=== PATIENT | female | born 1990 | race Caucasian/White ===

== ENCOUNTER 2023-09-30 13:43 | Outpatient (AMB) | payer OTHER, SELFPAY ==
--- NOTE | 2023-09-30 13:51 | A.OFFVIS_ITS ---
Vital Signs 09/30/23 13:53 Height 6 ft Weight 284 lb 13.396 oz BMI 38.6 BP 130/70 Blood Pressure Location Lt brachial Position Sitting Pulse 101 H Intake Visit Reasons: Gastroesophageal reflux disease (GERD) Intake Note: Patient in office today for evaluation and management of GERD. CC: Patient c/o acid reflux for about 3 years. Taking Omeprazole with good management of symptoms. [facility] Administrator Required: No Accompanied by: Self / Same As Patient Allergies rosin Allergy (Severe, Verified 09/30/23 14:00) Rash sulfamethoxazole [From Bactrim] Allergy (Severe, Verified 09/30/23 14:00) Rash trimethoprim [From Bactrim] Allergy (Severe, Verified 09/30/23 14:00) Rash Medication List - Last Reconciled 09/30/23 by Claudia West [facility]- buspirone 15 mg PO BID cariprazine (Vraylar) 3 mg PO DAILY ezetimibe (Zetia) 10 mg PO DAILY fexofenadine (Omaira Allergy) 180 mg PO DAILY fluticasone propionate 50 mcg/actuation (Flonase Allergy Relief) 1 spray intranasal DAILY gabapentin 200 mg PO BID hydroxyzine HCl 10 mg PO TID PRN lamotrigine (Lamictal) 200 mg PO DAILY omeprazole 20 mg PO DAILY quetiapine (Seroquel) 50 mg PO DAILY HPI HPI Gastroesophageal reflux disease (GERD): Details: 32-year-old female with past medical history of bipolar, anxiety, hypercholesteremia is here today for initial consultation. Patient was sent to us by her PCP. Patient reports that she has been on omeprazole for the last 3 years and was told that she will need as endoscopy. Any time she is trying to stop the omeprazole she has acid reflux. Admits that omeprazole helps, however even if stopping for day or 2 she will have epigastric pain and dyspepsia postprandially. Patient does not eat late at night. Reports that she is moving her bowels well, denies melena, hematochezia, unintentional weight loss or ribbon like stools patient denies any dysphagia or odynophagia. [facility] Surgical History History of myomectomy H/O adenoidectomy History of ear surgery Family History Maternal Grandmother Breast cancer Colon cancer Maternal Grandfather Kidney malignancy Maternal Aunt Breast cancer Social History Alcohol intake: current Alcohol intake frequency: a few times a week Patient Tobacco Use Status: Never used Tobacco Review of Systems Const Denies weight gain and Denies weight loss ENT Reports no additional complaints, Denies dysphagia and Denies odynophagia Card Reports no additional complaints Resp Reports no additional complaints GI Denies abdominal pain, Denies belching, Denies melena, Denies bloating, Denies change in bowel habits, Denies dysphagia, Denies excessive flatus, Denies dyspepsia, Reports heartburn (Occasional, well controlled with omeprazole), Denies diarrhea, Denies loose stools, Denies nausea, Denies odynophagia and Denies vomiting Reports no additional complaints Musc Reports no additional complaints Neuro Reports no additional complaints Psych Reports no additional complaints Endo Reports no additional complaints Physical Exam Vital Signs: Last Vital Signs Pulse 101 H 09/30/23 13:53 BP 130/70 09/30/23 13:53 BMI result Body Mass Index 38.6 Const General: healthy appearing and no acute distress Nutritional Appearance: obese Orientation/consciousness: patient oriented x3 Resp Effort & Inspection: normal respiratory effort, able to speak in complete sentences, no tracheal deviation and symmetric chest movement Auscultation: clear to auscultation bilaterally Cardio Rate: regular rate GI Inspection: Yes normal to inspection, No distended and Yes obesity Palpation (GI): Soft to palpation, not firm, nontender and No hepatosplenomegaly present Auscultation: normal bowel sounds General: Yes no CVA tenderness Back/Spine/Pelvis Back: no CVA tenderness Skin General skin exam: elasticity normal, turgor normal and dry skin Neuro General: patient oriented x3 Psych Appearance: grossly normal Mental Status: mental status grossly normal Assessment & Plan Assessment & Plan (1) GERD (gastroesophageal reflux disease): Code(s): K21.9 - Gastro-esophageal reflux disease without esophagitis Qualifiers: Esophagitis presence: esophagitis presence not specified Qualified Code(s): K21.9 - Gastro-esophageal reflux disease without esophagitis Plan Long history of PPI use. Patient states that she has been on omeprazole for 3 years. When never patient tries to stop taking it her symptoms return. Patient reports epigastric discomfort and dyspepsia. Will send patient for H pylori. Patient will stop taking omeprazole 2 weeks before coming in for the testing and can start taking famotidine. Will send patient for upper endoscopy to rule out gastritis, esophagitis, duodenitis, gastric or peptic ulcers, Tinoco's. Patient will follow-up in the office after the procedure, sooner on as needed basis. Patient is agreeable to this plan and verbalizes understanding of instructions. She was given the opportunity to ask questions and all questions answered. Thank you for allowing me to participate in her care Orders: Orders H Pylori Breath Test Today K21.9 - Gastro-esophageal reflux disease without esophagitis Medications: New famotidine (Pepcid) 20 mg PO BID 30 tabs 3RF K29.70 - Gastritis, unspecified, without bleeding Coding Level of Care Code New Pt Level 3 (42847) Diagnoses Gastroesophageal reflux disease, unspecified whether esophagitis present K21.9 Esophagitis presence: esophagitis presence not specified Time Spent (min) 40 Comment 30 minutes spent with patient and additional 10 minutes spent reviewing her records
[2023-09-30 13:53] VITALS: BP 130/70; PULSE 101; BMI 38.6
== END 2023-09-30 14:47 | disposition home or self-care (01) ==
PROVIDERS: PCP Internal Medicine; Visit Provider Nurse Practitioner Family
DX: K21.9 Gastro-esophageal reflux disease without esophagitis (principal)
CPT/HCPCS: 99203

== ENCOUNTER → 2023-09-30 13:43 | Outpatient (BNVA) | payer OTHER, SELFPAY | PROVIDERS: PCP Internal Medicine; Visit Provider Nurse Practitioner Family ==

== ENCOUNTER 2023-10-21 13:54 | Outpatient (REF) | payer OTHER, SELFPAY ==
[2023-10-25 13:17] LABS: H Pylori Breath Test Negative (Negative)
== END 2023-10-21 13:55 | disposition home or self-care (01) ==
LOC: HO.LNP 13:54
PROVIDERS: PCP Internal Medicine; Visit Provider Nurse Practitioner Family
DX: K21.9 Gastro-esophageal reflux disease without esophagitis (principal)
CPT/HCPCS: 83013

== ENCOUNTER 2024-03-30 11:19 | Day surgery (SDC) | payer OTHER, SELFPAY ==
[2024-03-26 13:02] VITALS: BMI 38.6
--- NOTE | 2024-03-27 12:43 | HO.ANESPROP2 ---
Documented by User: Jasmin Castillo NP 03/27/24 12:43 HPI - Anesthesia Eval Consult details Narrative: 33yo F for Upper Endoscopy [facility] Past Medical History Medical History (Updated 03/26/24 @ 13:02 by Salud Self RN) Anxiety Bipolar disorder Elevated cholesterol GERD (gastroesophageal reflux disease) Family History Family History Maternal Grandmother Breast cancer Colon cancer Maternal Grandfather Kidney malignancy Maternal Aunt Breast cancer Surgical History Surgical History History of myomectomy H/O adenoidectomy History of ear surgery Social History Social History Alcohol intake: current Alcohol intake frequency: does not drink Patient Tobacco Use Status: Never used Tobacco Have you been hit, kicked, punched, or otherwise hurt by someone within the past year? If so, by whom?: No Are you DNR?: No Advance Directives: No Advance Directives Information Provided: Yes Nutrition Risks: No Nutritional Risk Patient : No FDLMP: 3 weeks ago Meds Allergies Allergy/AdvReac Type Severity Reaction Status Date / Time rosin Allergy Severe Rash Verified 09/30/23 14:00 sulfamethoxazole Allergy Severe Rash Verified 09/30/23 14:00 [From Bactrim] trimethoprim [From Bactrim] Allergy Severe Rash Verified 09/30/23 14:00 Home Medications ?Medication ?Instructions ?Recorded ?Confirmed ?Last Taken ?Type buspirone 15 mg tablet 15 mg PO BID 09/30/23 03/26/24 Unknown History cariprazine 3 mg capsule (Vraylar) 3 mg PO DAILY 09/30/23 03/26/24 Unknown History ezetimibe 10 mg tablet (Zetia) 10 mg PO DAILY 09/30/23 03/26/24 Unknown History fexofenadine 180 mg tablet 180 mg PO DAILY 09/30/23 03/26/24 Unknown History (Omaira Allergy) fluticasone propionate 50 1 spray intranasal DAILY 09/30/23 03/26/24 Unknown History mcg/actuation nasal spray,suspension (Flonase Allergy Relief) gabapentin 400 mg capsule 200 mg PO BID 09/30/23 03/26/24 Unknown History hydroxyzine HCl 10 mg tablet 10 mg PO TID PRN Anxiety 09/30/23 03/26/24 Unknown History lamotrigine 200 mg tablet 200 mg PO DAILY 09/30/23 03/26/24 Unknown History (Lamictal) quetiapine 50 mg tablet (Seroquel) 50 mg PO DAILY 09/30/23 03/26/24 Unknown History Exam Height,Weight and Vital Signs: Height 6 ft Weight 129.274 kg Assessment and Plan Assessment Anesthesia Assessment: Chart Reviewed Documented by User: North Long MD 03/30/24 13:14 [facility] Past Medical History Medical History (Updated 03/26/24 @ 13:02 by Salud Self RN) Anxiety Bipolar disorder Elevated cholesterol GERD (gastroesophageal reflux disease) Family History Family History Maternal Grandmother Breast cancer Colon cancer Maternal Grandfather Kidney malignancy Maternal Aunt Breast cancer Family history of problems with anesthesia: No Surgical History Surgical History History of myomectomy H/O adenoidectomy History of ear surgery History of Problems with Anesthesia: No Social History Social History Alcohol intake: current Alcohol intake frequency: does not drink Patient Tobacco Use Status: Never used Tobacco Have you been hit, kicked, punched, or otherwise hurt by someone within the past year? If so, by whom?: No Are you DNR?: No Advance Directives: No Advance Directives Information Provided: Yes Nutrition Risks: No Nutritional Risk Patient : No FDLMP: 3 weeks ago Meds Allergies Allergy/AdvReac Type Severity Reaction Status Date / Time rosin Allergy Severe Rash Verified 09/30/23 14:00 sulfamethoxazole Allergy Severe Rash Verified 09/30/23 14:00 [From Bactrim] trimethoprim [From Bactrim] Allergy Severe Rash Verified 09/30/23 14:00 Home Medications ?Medication ?Instructions ?Recorded ?Confirmed ?Last Taken ?Type buspirone 15 mg tablet 15 mg PO BID 09/30/23 03/26/24 Unknown History cariprazine 3 mg capsule (Vraylar) 3 mg PO DAILY 09/30/23 03/26/24 Unknown History ezetimibe 10 mg tablet (Zetia) 10 mg PO DAILY 09/30/23 03/26/24 Unknown History fexofenadine 180 mg tablet 180 mg PO DAILY 09/30/23 03/26/24 Unknown History (Omaira Allergy) fluticasone propionate 50 1 spray intranasal DAILY 09/30/23 03/26/24 Unknown History mcg/actuation nasal spray,suspension (Flonase Allergy Relief) gabapentin 400 mg capsule 200 mg PO BID 09/30/23 03/26/24 Unknown History hydroxyzine HCl 10 mg tablet 10 mg PO TID PRN Anxiety 09/30/23 03/26/24 Unknown History lamotrigine 200 mg tablet 200 mg PO DAILY 09/30/23 03/26/24 Unknown History (Lamictal) quetiapine 50 mg tablet (Seroquel) 50 mg PO DAILY 09/30/23 03/26/24 Unknown History Exam Airway Mallampati Class: II TM Dist: >3cm Neck ROM: Full Other: obesity Assessment and Plan Assessment Anesthesia Assessment: Anesthesia Plan Discussed Final Anesthetic Review Family History of Problems with Anesthesia: No History of Problems with Anesthesia: No NPO: Yes ASA Class: III Final Preanesthetic Review: No Changes in Pt Med Stat, Meds/Allgs Chart Reviewed, Consent Obtained/Reviewed and Anes Risks/Benef Reviewed Patient Risk: Intermediate Procedure Risk: Low Anesthetic Plan Anesthetic Plan: TIVA Disposition: Standard PACU
--- NOTE | 2024-03-30 11:49 | MHC.SHP ---
Pre-Procedural Eval Section A - 24 Hr Update-Section A only Date of Service: 03/30/24 The patient is an INPATIENT: No The patient has been examined within 24 hours of the surgical procedure. The History & Physical has been completed within 30 days and I have reviewed it.: No Section B - Complete if H&P > 30 days Chief Complaint: gerd, dyspepsia Relevant Family History (Specify if Yes): Yes Relevant Social History: None Present Medications: see Short Stay Collaborative assessment Medical History: Significant History (GERD, anxiety, bipolar disorder, elevated cholesterol) History of Previous Operations: Relevant previous surgery/procedure and date(s) (History of myomectomy H/O adenoidectomy History of ear surgery) Allergies: Allergies Allergy/AdvReac Type Severity Reaction Status Date / Time rosin Allergy Severe Rash Verified 09/30/23 14:00 sulfamethoxazole Allergy Severe Rash Verified 09/30/23 14:00 [From Bactrim] trimethoprim [From Bactrim] Allergy Severe Rash Verified 09/30/23 14:00 Review of Systems Sugical H&P ROS: Negative: Constitution and Yes, Specify: Gastrointestinal (GERD, dyspepsia) Exam Surgical H&P Exam: Normal: Heart, Normal: Lungs, Normal: Extremities and Normal: Abdomen Plan Diagnosis/Plan: Unchanged I have reviewed the history and physical and performed a pertinent physical examination on my patient. No changes have occurred unless specified. Time Spent With Patient Time: Total time managing care of this patient today ____ minutes.
[2024-03-30 11:56] VITALS: BP 137/96; PULSE 93; RESP 18; TEMP 36.4; O2SAT 97; BMI 39.7
[2024-03-30 12:17] LABS: Urine Pregnancy NEGATIVE (NEGATIVE)
[2024-03-30 12:18] LABS: UPreg QC Valid YES
[2024-03-30] MEDS: Lactated Ringers 1,000 ML 100 ML IVCONT (12:21)
--- NOTE | 2024-03-30 13:32 | W.PM.OPN ---
Operative Note Operative Note Date of Service: 03/30/24 Narrative: FLEXIBLE TRANSORAL UPPER GASTROINTESTINAL ENDOSCOPY WITH BIOPSIES Pre-op diagnosis: GERD, Epigastric pain, dyspepsia Post-op diagnosis: GERD, Gastritis, Gastric Polyp Endoscopist:? Favio Lugo MD Anesthesia:?MAC UPPER ENDOSCOPY Consent: Indications for the procedure and potential complications of bleeding, perforation, reaction to medications and missed diagnosis were discussed with the patient and informed consent was obtained. Instrument: Olympus GIF H 190 mid size upper endoscope Monitoring: Vital signs and clinical assessment, continuous EKG monitoring, Pulse oximetry, Carbon Dioxide monitoring and blood pressure monitoring were done throughout the procedure. Procedure: The patient was placed in the left lateral decubitis position and pre-procedure medications were administered and a bite block was placed. The endoscope was inserted into the mouth and advanced under direct vision to the third part of duodenum. A careful inspection was made as the upper endoscope was withdrawn including a retroflexed examination of the proximal stomach; Findings and interventions are described below. Findings: Larynx: Normal Esophagus: GE junction at 40 cms. No esophagitis or Tinoco's Stomach: Moderate amount of bile noted in the stomach. A 2-3 mm benign appearing polyp in the distal body - biopsied. Mild diffuse gastric erythema - biopsies were obtained from the gastric body and antrum. Grade 2 flap valve on retroflexed examination of the cardia. Duodenum: Normal bulb and descending duodenum. Biopsies were obtained from 3rd part of the duodenum to check for celiac sprue Intervention: Biopsies as noted above Impression and Post Procedure Diagnosis: Endoscopy Findings: ESOPHAGUS: Normal STOMACH: Mild diffuse gastritis and benign appearing gastric polyp. DUODENUM: Normal - biopsied to check for celiac sprue. Plan: Pt has a FU appointment on 04/20/24 with Chanda West NP. Above findings were reviewed with the patient and relevant handouts were given and the discharge area. BIOPSIES SHOWED: A. Small bowel, biopsy: Duodenal mucosa within normal limits. B. Stomach, antrum, biopsy: Antral-type and oxyntic mucosa with mild chronic inactive inflammation; no Helicobacter organisms seen. C. Stomach, body, biopsy: Oxyntic mucosa with mild chronic inactive inflammation; no Helicobacter organisms seen. D. Stomach, polypectomy: Fundic gland polyp with background mild chronic inactive inflammation; no Helicobacter organisms seen.
[2024-03-30 13:35] VITALS: BP 121/69; PULSE 89; RESP 16; TEMP 36.9; O2SAT 95
[2024-03-30 13:50] VITALS: BP 124/64; PULSE 83; RESP 18; TEMP 36.9; O2SAT 96
== END 2024-03-30 14:10 | disposition home or self-care (01) ==
PROVIDERS: Nurse Practitioner; PCP Internal Medicine; Visit Provider Internal Medicine Gastroenterology
PROC: 0DJ08ZZ Inspection of Upper Intestinal Tract, Via Natural or Artificial Opening Endoscopic (ICD-10-PCS; CPT 43235; principal; 2024-03-30 13:30)
DX: K21.9 Gastro-esophageal reflux disease without esophagitis (principal); K29.70 Gastritis, unspecified, without bleeding; K31.7 Polyp of stomach and duodenum; E78.00 Pure hypercholesterolemia, unspecified; F31.9 Bipolar disorder, unspecified; F41.9 Anxiety disorder, unspecified; Z79.51 Long term (current) use of inhaled steroids; Z79.899 Other long term (current) drug therapy; Z88.2 Allergy status to sulfonamides; Z91.048 Other nonmedicinal substance allergy status; Z98.890 Other specified postprocedural states
CPT/HCPCS: 43239; 81025; 88305; 88313; 88342; J2003; J2704

== ENCOUNTER → 2024-03-30 11:19 | Outpatient (BNV) | payer OTHER, SELFPAY | PROVIDERS: PCP Internal Medicine; Visit Provider Internal Medicine Gastroenterology | DX: K21.9 Gastro-esophageal reflux disease without esophagitis (principal); K29.70 Gastritis, unspecified, without bleeding; K31.7 Polyp of stomach and duodenum | CPT/HCPCS: 43239 ==

== ENCOUNTER 2024-04-20 14:47 | Outpatient (AMB) | payer OTHER, SELFPAY ==
[2024-04-20 14:49] VITALS: BP 120/74; PULSE 98; O2SAT 98; BMI 40.2
--- NOTE | 2024-04-20 14:49 | MHC.OFFVIS ---
Vital Signs 04/20/24 14:49 Height 6 ft Weight 296 lb 11.875 oz BMI 40.2 BP 120/74 Blood Pressure Location Rt brachial Position Sitting Pulse 98 Pulse Source Pulse Oximeter Pulse Oximetry (%) 98 Oxygen Delivery Method Room Air Intake Visit Reasons: s/P EGD; Intake Note: Relevant Flags or Indicators ? Requires Director Of Special Events? N Sheila presents in office today for a scheduled s/p FUV ? Relevant GI Sx as reported per pt? No changes reported. ? Hx of any recent surgeries? EGD w/ RM Director Of Special Events Required: No Allergies rosin Allergy (Severe, Verified 04/20/24 14:54) Rash sulfamethoxazole [From Bactrim] Allergy (Severe, Verified 04/20/24 14:54) Rash trimethoprim [From Bactrim] Allergy (Severe, Verified 04/20/24 14:54) Rash HPI HPI s/P EGD; : Details: LAST VISIT GERD (gastroesophageal reflux disease) Plan Long history of PPI use. Patient states that she has been on omeprazole for 3 years. When never patient tries to stop taking it her symptoms return. Patient reports epigastric discomfort and dyspepsia. Will send patient for H pylori. Patient will stop taking omeprazole 2 weeks before coming in for the testing and can start taking famotidine. Will send patient for upper endoscopy to rule out gastritis, esophagitis, duodenitis, gastric or peptic ulcers, Tinoco's. Patient will follow-up in the office after the procedure, sooner on as needed basis. Patient is agreeable to this plan and verbalizes understanding of instructions. She was given the opportunity to ask questions and all questions answered. ? Thank you for allowing me to participate in her care Orders Orders H Pylori Breath Test Today K21.9 Medications New famotidine (Pepcid) 20 mg PO BID 30 tabs 3RF K29.70 UPPER ENDOSCOPY Findings: Larynx: Normal Esophagus: GE junction at 40 cms. No esophagitis or Tinoco's Stomach: Moderate amount of bile noted in the stomach. A 2-3 mm benign appearing polyp in the distal body - biopsied. Mild diffuse gastric erythema - biopsies were obtained from the gastric body and antrum. Grade 2 flap valve on retroflexed examination of the cardia. Duodenum: Normal bulb and descending duodenum. Biopsies were obtained from 3rd part of the duodenum to check for celiac sprue Intervention: Biopsies as noted above Impression and Post Procedure Diagnosis: Endoscopy Findings: ESOPHAGUS: GE junction at 35 cms. Mildly tortuous esophagus STOMACH: Nodular appearing mucosa in the gastric body and fundus - biopsied. Moderate diffuse gastric erythema - biopsies were obtained from the antrum. Plan: Above findings were reviewed with the patient and relevant handouts were given and the discharge area. PATHOLOGY RESULTS Diagnosis A. Small bowel, biopsy: Duodenal mucosa within normal limits. B. Stomach, antrum, biopsy: Antral-type and oxyntic mucosa with mild chronic inactive inflammation; no Helicobacter organisms seen. C. Stomach, body, biopsy: Oxyntic mucosa with mild chronic inactive inflammation; no Helicobacter organisms seen. D. Stomach, polypectomy: Fundic gland polyp with background mild chronic inactive inflammation; no Helicobacter organisms seen TODAY'S VISIT Patient is here today for follow-up and to discuss upper endoscopy results. Patient denies any ill effects from anesthesia or procedure itself. Patient denies dyspepsia, dysphagia or odynophagia. Patient states that reflux is much better since she started taking omeprazole, however she still reports that occasionally at night time she will feel acid reflux specially when she wakes up in the morning and sometimes during the night. Patient does sometimes eats late at night as she is at home at 06:30 and she eats her largest meal in the evening. Upper endoscopy results and biopsy results discussed with patient. Patient was found to have bile in her stomach mild chronic inactive inflammation without H pylori. Patient had H pylori testing done before going for endoscopy and that was negative. Patient denies any nausea or vomiting. Denies any melena, hematochezia, unintentional weight loss or ribbon like stools. Patient would like to lose weight [facility] Medical History Anxiety Bipolar disorder Elevated cholesterol GERD (gastroesophageal reflux disease) Surgical History History of myomectomy H/O adenoidectomy History of ear surgery Family History Maternal Grandmother Breast cancer Colon cancer Maternal Grandfather Kidney malignancy Maternal Aunt Breast cancer Social History Alcohol intake: current Alcohol intake frequency: does not drink Patient Tobacco Use Status: Never used Tobacco Review of Systems Const Denies weight gain and Denies weight loss ENT Reports no additional complaints, Denies dysphagia and Denies odynophagia Card Reports no additional complaints Resp Reports no additional complaints GI Denies abdominal pain, Denies belching, Denies melena, Denies bloating, Denies change in bowel habits, Denies dysphagia, Denies excessive flatus, Denies dyspepsia, Reports heartburn (occasional), Denies diarrhea, Denies loose stools, Denies nausea, Denies odynophagia and Denies vomiting Reports no additional complaints Musc Reports no additional complaints Neuro Reports no additional complaints Psych Reports no additional complaints Endo Reports no additional complaints Physical Exam Vital Signs: BMI result Body Mass Index 40.2 Const General: healthy appearing and no acute distress Nutritional Appearance: obese Orientation/consciousness: patient oriented x3 Resp Effort & Inspection: normal respiratory effort, able to speak in complete sentences, no tracheal deviation and symmetric chest movement Auscultation: clear to auscultation bilaterally Cardio Rate: regular rate GI Inspection: Yes normal to inspection, No distended and Yes obesity Palpation (GI): Soft to palpation, not firm, nontender and No hepatosplenomegaly present Auscultation: normal bowel sounds General: Yes no CVA tenderness Back/Spine/Pelvis Back: no CVA tenderness Skin General skin exam: elasticity normal, turgor normal and dry skin Neuro General: patient oriented x3 Psych Appearance: grossly normal Mental Status: mental status grossly normal Results Reviewed Results Reviewed: Laboratory Tests 10/21/23 14:30 H. pylori Breath Test Negative Assessment & Plan Assessment & Plan (1) GERD (gastroesophageal reflux disease): Code(s): K21.9 - Gastro-esophageal reflux disease without esophagitis Qualifiers: Esophagitis presence: without esophagitis Qualified Code(s): K21.9 - Gastro-esophageal reflux disease without esophagitis Plan Patient will continue taking omeprazole. She will be sent for upper GI study to rule out and evaluate how that her reflux is. Patient will start taking sucralfate at bedtime. Patient was encouraged to eat small meals and more often. Bile seen in her stomach on endoscopy. Discussed with patient that losing weight would help. Patient will try to take berberine daily and see how it will work for her. Avoid dietary triggers and late night snacking. Staying upright for minimum 3 hours after meals discussed with patient. Follow-up in 4 months, sooner on as needed basis. She is agreeable to this plan and verbalizes understanding of instructions. She was given the opportunity to ask questions and all questions answered. Thank you for allowing me to participate in her care Orders: Orders FL upper GI w Ba Swallow Today K21.9 - Gastro-esophageal reflux disease without esophagitis Medications: New sucralfate 1 g PO BEDTIME 30 tabs 1RF R19.7 - Diarrhea, unspecified Coding Level of Care Code Est Pt Level 3 (66205) Diagnoses Gastroesophageal reflux disease without esophagitis K21.9 Esophagitis presence: without esophagitis Time Spent (min) 30 Comment 20 minutes spent with patient and additional 10 minutes spent reviewing her records
== END 2024-04-20 15:28 | disposition home or self-care (01) ==
PROVIDERS: PCP Internal Medicine; Visit Provider Nurse Practitioner Family
DX: K21.9 Gastro-esophageal reflux disease without esophagitis (principal)
CPT/HCPCS: 99213

== ENCOUNTER → 2024-04-20 14:47 | Outpatient (BNVA) | payer OTHER, SELFPAY | PROVIDERS: PCP Internal Medicine; Visit Provider Nurse Practitioner Family ==

== ENCOUNTER 2024-08-03 09:47 | Outpatient (REF) | payer OTHER, SELFPAY ==
--- NOTE | ~2024-08-03 | FL_ITS ---
EXAMINATION: XR UPPER GI SERIES WITH SMALL BOWEL CLINICAL INFORMATION: Gastroesophageal reflux disease without esophagitis. COMPARISON: None available. TECHNIQUE: Routine upper GI air contrast study this barium swallow was performed in upright and lying position. FINDINGS: Only oral administration of thick barium and effervescent granules is normal propagation bolus from the oral cavity through the pharynx, esophagus into stomach without any evidence of obstruction, narrowing or stricture. No laryngeal penetration or aspiration seen. On placing patient in supine and prone lying there is a large gastroesophageal reflux into the midesophagus without hiatal hernia. The course, caliber and peristalsis stomach, duodenal bulb and this CT is normal. The mucosal pattern of the esophagus and stomach is normal. FLUOROSCOPY TIME: 2 minutes 11 seconds DOSE AREA PRODUCT: History 15 uGy-m2 (microgray-meter squared) FL/FL upper GI w air w Ba Swallow IMPRESSION: Significant gastroesophageal reflux into the midesophagus without hiatal hernia. Electronically signed by: Aleks Cline MD 08/04/2024 04:34 PM EDT
== END 2024-08-03 09:48 | disposition home or self-care (01) ==
LOC: HO.XRAY 09:47
PROVIDERS: Visit Provider Nurse Practitioner Family
DX: K21.9 Gastro-esophageal reflux disease without esophagitis (principal)
CPT/HCPCS: 74246

== ENCOUNTER → 2024-08-03 09:49 | Outpatient (BNV) | payer OTHER, SELFPAY | PROVIDERS: Visit Provider Radiology Diagnostic Radiology | DX: K21.9 Gastro-esophageal reflux disease without esophagitis (principal) | CPT/HCPCS: 74246 ==

== ENCOUNTER 2024-08-24 14:52 | Outpatient (AMB) | payer OTHER, SELFPAY ==
--- NOTE | 2024-08-24 14:55 | A.OFFVIS_ITS ---
Vital Signs 08/24/24 14:56 Height 6 ft Weight 285 lb 11.505 oz BMI 38.7 BP 124/74 Blood Pressure Location Rt brachial Position Sitting Pulse 102 H Pulse Source Pulse Oximeter Pulse Oximetry (%) 97 Oxygen Delivery Method Room Air Intake Visit Reasons: 4 mo f/u Intake Note: ESTABLISHED PATIENT for GERD mgmt. Review [place] BA Chief Complaint; Pt denies any GI concerns at this time. Sx well controlled. Pt does have question about pathology and possible billing discrepancy. Communication Consultant Required: No Accompanied by: Self / Same As Patient Allergies rosin Allergy (Severe, Verified 08/24/24 14:55) Rash sulfamethoxazole [From Bactrim] Allergy (Severe, Verified 08/24/24 14:55) Rash trimethoprim [From Bactrim] Allergy (Severe, Verified 08/24/24 14:55) Rash HPI HPI 4 mo f/u: Details: LAST VISIT: GERD (gastroesophageal reflux disease) Plan Patient will continue taking omeprazole. She will be sent for upper GI study to rule out and evaluate how that her reflux is. Patient will start taking sucralfate at bedtime. Patient was encouraged to eat small meals and more often. Bile seen in her stomach on endoscopy. Discussed with patient that losing weight would help. Patient will try to take berberine daily and see how it will work for her. Avoid dietary triggers and late night snacking. Staying upright for minimum 3 hours after meals discussed with patient. Follow-up in 4 months, sooner on as needed basis. She is agreeable to this plan and verbalizes understanding of instructions. She was given the opportunity to ask questions and all questions answered. ? Thank you for allowing me to participate in her care Orders Orders FL upper GI w Ba Swallow Today K21.9 Medications New sucralfate 1 g PO BEDTIME 30 tabs 1RF R19.7 TODAY'S VISIT Patient is here today for follow-up and to discuss upper GI series results. Patient reports that she has been feeling better, however occasionally she still will have epigastric discomfort. Upper GI series done 3 weeks ago and it showed the patient still has significant reflux. Currently patient is on omeprazole 20 mg. We will increase the dose. Patient reports that she is trying to avoid dietary triggers. Reports that significantly is doing better. Patient has question about her pathology bill. Pathology bill was billed from other company from [place] and not from the hospital. Patient will go to finance office and billing to figure this out. Patient reports that she is moving her bowels well without any issues denies any other GI concerning symptoms today. [facility] Medical History Anxiety Bipolar disorder Elevated cholesterol GERD (gastroesophageal reflux disease) Surgical History History of myomectomy H/O adenoidectomy History of ear surgery Family History Maternal Grandmother Breast cancer Colon cancer Maternal Grandfather Kidney malignancy Maternal Aunt Breast cancer Social History Alcohol intake: current Alcohol intake frequency: does not drink Patient Tobacco Use Status: Never used Tobacco Review of Systems Const Denies weight gain and Denies weight loss ENT Reports no additional complaints, Denies dysphagia and Denies odynophagia Card Reports no additional complaints Resp Reports no additional complaints GI Denies abdominal pain, Denies belching, Denies melena, Denies bloating, Denies change in bowel habits, Denies dysphagia, Denies excessive flatus, Denies dyspepsia, Reports heartburn (occasional), Denies diarrhea, Denies loose stools, Denies nausea, Denies odynophagia and Denies vomiting Reports no additional complaints Musc Reports no additional complaints Neuro Reports no additional complaints Psych Reports no additional complaints Endo Reports no additional complaints Physical Exam Vital Signs: Last Vital Signs Pulse 102 H 08/24/24 14:56 BP 124/74 08/24/24 14:56 Pulse Ox 97 08/24/24 14:56 Oxygen Delivery Method Room Air 08/24/24 14:56 BMI result Body Mass Index 38.7 Const General: healthy appearing and no acute distress Nutritional Appearance: obese Orientation/consciousness: patient oriented x3 Resp Effort & Inspection: normal respiratory effort, able to speak in complete sentences, no tracheal deviation and symmetric chest movement Auscultation: clear to auscultation bilaterally Cardio Rate: regular rate GI Inspection: Yes normal to inspection, No distended and Yes obesity Palpation (GI): Soft to palpation, not firm, nontender and No hepatosplenomegaly present Auscultation: normal bowel sounds General: Yes no CVA tenderness Back/Spine/Pelvis Back: no CVA tenderness Skin General skin exam: elasticity normal, turgor normal and dry skin Neuro General: patient oriented x3 Psych Appearance: grossly normal Mental Status: mental status grossly normal Results Reviewed Results Reviewed: UPPER GI SERIES 08/03/2024 IMPRESSION: Significant gastroesophageal reflux into the midesophagus without hiatal hernia. Assessment & Plan Assessment & Plan (1) GERD (gastroesophageal reflux disease): Code(s): K21.9 - Gastro-esophageal reflux disease without esophagitis Qualifiers: Esophagitis presence: without esophagitis Qualified Code(s): K21.9 - Gastro-esophageal reflux disease without esophagitis Plan Increase omeprazole to 40 mg daily. Patient will continue avoiding dietary triggers a late night snacking. Staying upright for minimum 3 hours after meals discussed patient follow-up in 3-4 months, sooner on as needed basis. Patient is agreeable to plan and verbalizes understanding of instructions. She was given the opportunity to ask questions and all questions answered. Thank you for allowing me to participate in her care Medications: New omeprazole 40 mg PO DAILY 90 caps 3RF K21.9 - Gastro-esophageal reflux disease without esophagitis Coding Level of Care Code Est Pt Level 4 (86982) Complex EM visit Add On G2211 Diagnoses Gastroesophageal reflux disease without esophagitis K21.9 Esophagitis presence: without esophagitis Time Spent (min) 35 Comment 25 minutes spent with patient and additional 10 minutes spent reviewing her records
[2024-08-24 14:56] VITALS: BP 124/74; PULSE 102; O2SAT 97; BMI 38.7
--- OUTSIDE RECORDS SUMMARY | 2024-08-24 17:46 | XMS_ITS | Clinical Summary ---
Author Organization [facility] Address [address] [place] [id number] Phone Care Team Providers Care Lehr Loader Name Role Phone Jessica Correa MD Primary Care Provider [phone] Immunizations Immunization Administration Dates Next Due DTP 12/18/1994, 1,05/20/1990,02/17,1989 HPV, Quadrivalent 12/18/2011,10/17/2011 Hep B, ped/adol 11/27/1999,07/14/1999,06/06/1999 Hib (PRP-T) 02/17/1991, 1,05/20/1990,04/19 MMR 12/18/1994,02/17/1991 Meningococcal Conj (Menactra) MCV4P 11/26/2007 OPV 12/18/1994, 1,02/17/1990,12/18 Td (adult) (MBL), 2 Lf tetan us toxoid, PF, adsorbed 01/21/2002 Tdap 11/26/2007 Family History Relation Name Status Comments Father Alive Father: Hyperte nsion Mother Alive Mother: Alive a nd well Other Family history of Diabetes mellitus, Family history of Cancer -colon, Family history of Cancer -breast Sister Alive Sister: Dylan S yndrome, Alive and well Social History Tobacco Use Types Packs/Day Years Used Date Smoking Tobacco: Never Comments:Never smoker Comments Unknown Sex and Gender Information Value Date Recorded Sex Assigned at Not on file Legal Sex Female 4:40 PM EDT Gender Identity Not on file Sexual Orientation Not on file Last Filed Vital Signs Vital Sign Reading Time Taken Comments Blood Pressure 94/60 10/17/2011 12:00 AM EDT Pulse - - Temperature - - Respiratory Rate - - Oxygen Saturation - - Inhaled Oxygen Concentration - - Weight 79.8 kg (176 lb) 10/17/2011 12:00 AM EDT Height 180.3 cm (5' 11 ) 10/17/2011 12:00 AM EDT Body Mass Index 24.55 10/17/2011 12:00 AM EDT Plan of Treatment Health Maintenance Due Date Last Done Comments Varicella Vaccines (1 of 2 - 13+ 2-dose series) 2002 HPV Vaccines (3 - 3-dose series) 04/18/2012 12/18/2011, 10/17/2011 DTaP,Tdap,and Td Vaccines (7 - Td or Tdap) 11/25/2017 11/26/2007, 01/21/2002, 12/18/1994, Additional history exists Influenza Vaccines (#1) 2023 COVID-19 Vaccine ( season) 2024 HIB Vaccines Completed 02/17/1991, 05/1990, 05/20/1990, Additional history exists IPV Vaccines Completed 12/18/1994, 05/1990, 02/17/1990, Additional history exists MMR Vaccines Completed 12/18/1994, 02/17/1991 Hepatitis B Vaccines Completed 11/27/1999, 07/14/1999, 06/06/1999 Meningococcal Vaccine Completed 11/26/2007 Hepatitis A Vaccines Aged Out No long er eligible based on patient's age to complete this topic Men B Vaccine Aged Out No longer elig ible based on patient's age to complete this topic Pneumococcal Vaccine Aged Out No long er eligible based on patient's age to complete this topic Care Teams Lehr Loader Relationship Specialty Start Date End Date Jessica Correa MD [address] [facility] [place] [address] PCP - General 12/28/16
--- OUTSIDE RECORDS SUMMARY | 2024-08-24 17:46 | XMS_ITS | Encounter Summary ---
Author Organization [facility] Address [address] [place] [address] Phone Care Team Providers Care Social Problems Specialist Name Role Phone Jessica Correa MD Primary Care Provider [phone] Encounter Details Date Type Department Care Team (Late st Contact Info) Description 10/18/2011 Documentation [facility] [place] [address] [place], [place] [id number] Family Medicine, Physician [address], [place] [phone] Social History Tobacco Use Types Packs/Day Years Used Date Smoking Tobacco: Never Assessed Comments Unknown Sex and Gender Information Value Date Recorded Sex Assigned at Not on file Legal Sex Female 4:40 PM EDT Gender Identity Not on file Sexual Orientation Not on file documented as of this encounter Plan of Treatment Not on file documented as of this encounter Visit Diagnoses Not on filedocumented in this encounter Care Teams Social Problems Specialist Relationship Specialty Start Date End Date Jessica Correa MD [address] [place] [address] [place] [address] PCP - General 12/28/16 documented as of this encounter
--- OUTSIDE RECORDS SUMMARY | 2024-08-24 17:46 | XMS_ITS | Encounter Summary ---
Author Organization [facility] Address [address] [place] [address] Phone Care Team Providers Care Recycler Forklift Driver Truck Driver Name Role Phone Jessica Correa MD Primary Care Provider [phone] Encounter Details Date Type Department Care Team (Late st Contact Info) Description 01/03/2017 Conversion Encounter [facility] [address] [place] [address] Social History Tobacco Use Types Packs/Day Years [...] on filedocumented in this encounter Care Teams Recycler Forklift Driver Truck Driver Relationship Specialty Start Date End Date Jessica Correa MD [address] [place] [address] PCP - General 12/28/16 documented as of this encounter
--- OUTSIDE RECORDS SUMMARY | 2024-08-24 17:46 | XMS_ITS | Encounter Summary ---
Author Organization [facility] Address [address] [place] [address] Phone Care Team Providers Care Life Trainer Name Role Phone Jessica Correa MD Primary Care Provider Encounter Details Date Type Department Care Team (Late st Contact Info) Description 11/14/2010 Documentation [facility] [place] [address] [place], [place] [phone] Family Medicine, Physician [address] [place], [place] [phone] Social History Tobacco Use Types Packs/Day Years [...] on filedocumented in this encounter Care Teams Life Trainer Relationship Specialty Start Date End Date Jessica Correa MD [address] [place] [address] [place] [address] PCP - General 12/28/16 documented as of this encounter
--- OUTSIDE RECORDS SUMMARY | 2024-08-24 17:46 | XMS_ITS | Encounter Summary ---
Author Organization [facility] Address [address] [place] [address] Phone Care Team Providers Care Director Of Social Work Name Role Phone Jessica Correa MD Primary Care Provider [phone] Encounter Details Date Type Department Care Team (Late st Contact Info) Description 12/21/2011 Documentation [facility] [place] Medicine [address] [place], [place] [phone] Family Medicine, Physician [address] [place], [place] [address] Social History Tobacco Use Types Packs/Day Years [...] on filedocumented in this encounter Care Teams Director Of Social Work Relationship Specialty Start Date End Date Jessica Correa MD [address] [place] [address] [place] [address] PCP - General 12/28/16 documented as of this encounter
--- OUTSIDE RECORDS SUMMARY | 2024-08-24 17:46 | XMS_ITS | Encounter Summary ---
Author Organization [facility] Address [address] [place] [address] Phone Care Team Providers Care Brake Repairer Name Role Phone Jessica Correa MD Primary Care Provider [phone] Encounter Details Date Type Department Care Team (Late st Contact Info) Description 12/19/2011 Documentation [facility] [place] [address] [place], [place] [phone] Family Medicine, Physician [address] [place] [address] Social History Tobacco Use Types Packs/Day Years [...] on filedocumented in this encounter Care Teams Brake Repairer Relationship Specialty Start Date End Date Jessica Correa MD [address] [place] [address] [place] [id number] PCP - General 12/28/16 documented as of this encounter
== END 2024-08-24 15:39 | disposition home or self-care (01) ==
LOC: HO.HGI 14:53
PROVIDERS: PCP Internal Medicine; Visit Provider Nurse Practitioner Family
DX: K21.9 Gastro-esophageal reflux disease without esophagitis (principal)
CPT/HCPCS: 99214

== ENCOUNTER 2024-12-21 14:39 | Outpatient (AMB) | payer OTHER, SELFPAY ==
--- OUTSIDE RECORDS SUMMARY | 2024-12-21 14:42 | XMS_ITS | Encounter Summary ---
Author Organization [facility] Address [address] [place] [address] Phone Care Team Providers Care Mohel Name Role Phone Jessica Correa MD Primary Care Provider [phone] Encounter Details Date Type Department Care Team (Late st Contact Info) Description 11/14/2010 Documentation [facility] [place] Family Medicine [address] [place], [place] [phone] Family Medicine, Physician [address] [place], [place] [address] Social History Tobacco Use Types Packs/Day Years [...] on filedocumented in this encounter Care Teams Mohel Relationship Specialty Start Date End Date Jessica Correa MD [address] [place] [address] [place] [address] PCP - General 12/28/16 documented as of this encounter
--- NOTE | 2024-12-21 14:46 | A.OFFVIS_ITS ---
Vital Signs 12/21/24 14:50 Height 6 ft Weight 288 lb BMI 39.1 BP 120/78 Blood Pressure Location Rt brachial Position Sitting Pulse 80 Pulse Source Pulse Oximeter Pulse Oximetry (%) 99 Oxygen Delivery Method Room Air Intake Visit Reasons: 4 mo f/u Intake Note: ESTABLISHED PATIENT for GERD mgmt. CC; Pt denies any changes or new concerns since last visit. Pt confirms that PPI is still working as intended. Continuous Improvement Lead Required: No Accompanied by: Self / Same As Patient Allergies rosin Allergy (Severe, Verified 12/21/24 14:46) Rash sulfamethoxazole (From Bactrim) Allergy (Severe, Verified 12/21/24 14:46) Rash trimethoprim (From Bactrim) Allergy (Severe, Verified 12/21/24 14:46) Rash HPI HPI 4 mo f/u: Details: LAST VISIT GERD (gastroesophageal reflux disease) Plan Increase omeprazole to 40 mg daily. Patient will continue avoiding dietary triggers a late night snacking. Staying upright for minimum 3 hours after meals discussed patient follow-up in 3-4 months, sooner on as needed basis. Patient is agreeable to plan and verbalizes understanding of instructions. She was given the opportunity to ask questions and all questions answered. ? Thank you for allowing me to participate in her care New omeprazole 40 mg PO DAILY 90 caps 3RF K21.9 TODAY'S VISIT Patient is here today for follow-up. Patient reports that she has been doing well since taking omeprazole. Patient states that for the most part she is trying to stay away from spicy or greasy food. However patient does admit to be eating fast food occasionally. Patient denies any nausea or vomiting. Denies acid reflux, dyspepsia, dysphagia or odynophagia. Patient reports to have a good appetite. Denies any GI concerning symptoms. Patient is interested on weaning herself off of the medication [facility] Medical History Anxiety Bipolar disorder Elevated cholesterol GERD (gastroesophageal reflux disease) Surgical History History of myomectomy H/O adenoidectomy History of ear surgery Family History Maternal Grandmother Breast cancer Colon cancer Maternal Grandfather Kidney malignancy Maternal Aunt Breast cancer Social History Alcohol intake: current Alcohol intake frequency: does not drink Patient Tobacco Use Status: Never used Tobacco Review of Systems Const Denies weight gain and Denies weight loss ENT Reports no additional complaints, Denies dysphagia and Denies odynophagia Card Reports no additional complaints Resp Reports no additional complaints GI Denies abdominal pain, Denies belching, Denies melena, Denies bloating, Denies change in bowel habits, Denies dysphagia, Denies excessive flatus, Denies dyspepsia, Denies heartburn (occasional), Denies diarrhea, Denies loose stools, Denies nausea, Denies odynophagia and Denies vomiting Reports no additional complaints Musc Reports no additional complaints Neuro Reports no additional complaints Psych Reports no additional complaints Endo Reports no additional complaints Physical Exam Vital Signs: Last Vital Signs Pulse 80 12/21/24 14:50 BP 120/78 12/21/24 14:50 Pulse Ox 99 12/21/24 14:50 Oxygen Delivery Method Room Air 12/21/24 14:50 BMI result Body Mass Index 39.1 Const General: healthy appearing and no acute distress Nutritional Appearance: obese Orientation/consciousness: patient oriented x3 Resp Effort & Inspection: normal respiratory effort, able to speak in complete sentences, no tracheal deviation and symmetric chest movement Auscultation: clear to auscultation bilaterally Cardio Rate: regular rate GI Inspection: Yes normal to inspection, No distended and Yes obesity Palpation (GI): Soft to palpation, not firm, nontender and No hepatosplenomegaly present Auscultation: normal bowel sounds General: Yes no CVA tenderness Back/Spine/Pelvis Back: no CVA tenderness Skin General skin exam: elasticity normal, turgor normal and dry skin Neuro General: patient oriented x3 Psych Appearance: grossly normal Mental Status: mental status grossly normal Assessment & Plan Assessment & Plan (1) Gastroesophageal reflux disease: Code(s): K21.9 - Gastro-esophageal reflux disease without esophagitis Qualifiers: Esophagitis presence: esophagitis presence not specified Qualified Code(s): K21.9 - Gastro-esophageal reflux disease without esophagitis Plan Patient will continue taking omeprazole 40 mg daily. However patient was educated about how to appropriately wean herself off of omeprazole when ready. Long discussion with patient about dietary changes as well. Symptoms can come back and be worse sending if she stops the medication abruptly and continue to eat food that it spicy or fried. Dietary restrictions discussed. Staying upright for minimum 3 hours after meals discussed with her as well. She will follow-up in 1 year, sooner on as needed basis. She is agreeable to this plan and verbalizes understanding of instructions. She was given the opportunity to ask questions and all questions answered. Thank you for allowing me to participate in her care Medications: Refilled omeprazole 40 mg PO DAILY 90 caps 3RF K21.9 - Gastro-esophageal reflux disease without esophagitis Coding Level of Care Code Est Pt Level 3 (17832) Diagnoses Gastroesophageal reflux disease, unspecified whether esophagitis present K21.9 Esophagitis presence: esophagitis presence not specified Time Spent (min) 25 Comment 15 minutes spent with patient and additional 10 minutes spent reviewing her records
[2024-12-21 14:50] VITALS: BP 120/78; PULSE 80; O2SAT 99; BMI 39.1
== END 2024-12-21 15:06 | disposition home or self-care (01) ==
LOC: HO.HGI 14:40
PROVIDERS: PCP Internal Medicine; Visit Provider Nurse Practitioner Family
DX: K21.9 Gastro-esophageal reflux disease without esophagitis (principal)
CPT/HCPCS: 99213